=== PATIENT | female | born 1985 | race Caucasian/White ===

== ENCOUNTER → 2021-06-09 08:17 | Outpatient (CLI) | payer OTHER, SELFPAY ==
[2021-06-09 08:22] VITALS: BMI 27.4
[2021-06-09 08:30] LABS: Coronavirus 19, PCR Not Detected (NotDetected); Influenza A, PCR Not Detected (NotDetected); Influenza B, PCR Not Detected (NotDetected)
== END ==
PROVIDERS: Visit Provider Nurse Practitioner
DX: Z20.822 Contact with and (suspected) exposure to COVID-19 (principal)
CPT/HCPCS: C9803; U0003; U0005

== ENCOUNTER 2021-11-17 09:00 | Emergency (ER) | payer OTHER, SELFPAY ==
[2021-11-17 09:05] VITALS: BP 124/87; PULSE 114; RESP 18; TEMP 37.1; O2SAT 100; BMI 29.7
--- NOTE | 2021-11-17 09:25 | HMH.EDUTC ---
[facility] [place] Disposition Clinical Impression: URI (upper respiratory infection) Qualifiers: URI type: unspecified URI Qualified Code(s): J06.9 - Acute upper respiratory infection, unspecified Disposition: Home, Self-Care Condition on Discharge: Good Instructions: Sore Throat Additional Instructions: *Monitor Temp, Over the counter Motrin or Tylenol as directed/as needed Tylenol every 4 hours and Motrin every 6 hours (as long as your family doctor has told you that you can take it) for fever or pain. and straight to ER if unable to lower temp less than 101.0 after medication given *Warm salt water gargles may help to soothe the throat *Throat Lozenges *Warm fluids like tea with honey may help to soothe the throat *Sleep elevated *Humidifier/Vaporizer Your throat swab was sent for culture. Those results are typically sent to your primary care. Be sure to follow up in 2-3 days with your family doctor/primary care physician if no improvement so they can review those result and treat if necessary. If you don?t have a primary care doctor, I recommend you get one but in the mean time, you will have to return to a walk in clinic Follow up IMMEDIATELY for new or worsening symptoms or no Noticeable improvement over the next 48-72 hours. 911 for difficulty breathing or swallowing Prescriptions: methylPREDNISolone [Medrol 4mg tab] 4 mg PO DIRECTED #21 tab Transmission Status: Pending to [facility] Azithromycin [Z-Mark 250mg Tab] 250 mg PO DIRECTED #6 tab Transmission Status: Pending to [facility] Referrals: Lilly Oliveros PA [Primary Care Provider] - As needed Time of Disposition: 09:35 Medical Decision Making - Bacilio Inquiry Pt receiving controlled substance: No Bacilio was queried for this patient: No Vital Signs: 11/17/21 09:05 Temperature 98.7 F Temperature Source Oral Pulse Rate [Right Brachial] 114 H Respiratory Rate 18 Blood Pressure [Right Arm] 124/87 Blood Pressure Mean [Right Arm] 99 Blood Pressure Source [Right Arm] Automatic Cuff Blood Pressure Position [Right Arm] Sitting 02 Sat by Pulse Oximetry 100 Oxygen Delivery Method Room Air - Lab Data Lab Results 11/17/21 09:16: Group A Strep Rapid Negative Orders (Tests/Meds): ORDERS Category Date Time Status Strep Screen Confirmation Stat Micro 11/17/21 09:16 Received [facility] [place] HPI - General Stated complaint: bodyaches, SANDERS, sore throat Time Seen by Provider: 11/17/21 09:25 Mode of Arrival: Ambulatory Source of Information: Patient Limitations: No Limitations Description of Symptoms (Recalled from Triage Doc. by RN): PATIENT C/O SORE THROAT SINCE LAST NIGHT. RECENTLY EXPOSED TO STREP HEENT Symptoms (Recalled from RN notes): Yes Resp Symptoms (Recalled from RN notes): No Skin Symptoms (Recalled from RN notes): No MS Symptoms (Recalled from RN notes): No Functional Status (Recalled from RN notes): WNL - History of Present Illness Provider Complaint: Patient states that her kids was dx with strep throat yesterday and today she his having sore throat and feeling achy all over States that she is worried that she may have strep throat - Related Data Previous Rx's Medication Instructions Recorded Azithromycin [Z-Mark 250mg Tab] 250 mg PO DIRECTED #6 tab 11/17/21 methylPREDNISolone [Medrol 4mg 4 mg PO DIRECTED #21 tab 11/17/21 tab] Allergies Allergy/AdvReac Type Severity Reaction Status Date / Time Penicillins Allergy Verified 11/17/21 09:26 - Worker's Comp Is this a Worker's Comp case?: No [facility] History - Hepatitis A Screen Drug use history?: No High risk sexual behaviors?: No History of sexually transmitted infection?: No Currently employed?: No Childcare worker?: No Do you have indoor plumbing?: Yes Do you have electricity?: Yes Attestation statement:: This patient has been screened for Hepatitis A risk factors. I have reviewed the patient's past medical history: Yes - Soci
[2021-11-17 09:32] LABS: Strep Scrn Group A (Rapid) Negative (Negative)
[2021-11-17 09:33] VITALS: BP 124/87; PULSE 114; RESP 18; TEMP 37.1; O2SAT 100
== END 2021-11-17 09:38 | disposition home or self-care (01) ==
PROVIDERS: Emergency Provider Nurse Practitioner; PCP Physician Assistant
DX: J06.9 Acute upper respiratory infection, unspecified (principal); Z88.0 Allergy status to penicillin
CPT/HCPCS: 87430; 99212; G0463

== ENCOUNTER 2022-04-18 08:15 | Emergency (ER) | payer OTHER, SELFPAY ==
--- NOTE | 2022-04-18 08:19 | XR_ITS ---
FINAL REPORT CLINICAL HISTORY: injury FINDINGS: LEFT FOOT Three views of the left foot demonstrate no acute fracture or dislocation. The visualized joint spaces are normally aligned. The soft tissues are unremarkable. IMPRESSION: No acute bony abnormality. Reviewed, Interpreted and Dictated by Cleveland Connor III, MD Transcribed by Christine Levi Authenticated and [facility]
--- NOTE | 2022-04-18 08:34 | EXP.UTC ---
Discharge Plan Disposition Patient Disposition: Home, Self-Care Condition: Good Prescriptions Prescriptions: New ibuprofen [ibuprofen] 600 mg tablet 600 mg PO Q6HP PRN (Reason: Mild Pain) Qty: 30 0RF No Action azithromycin 250 MG tablet 250 mg PO DIRECTED Qty: 6 0RF Rx Instructions: Take two (2) tablets on day #1, then one (1) tablet day #2 thru #5 methylprednisolone 4 MG tablet 4 mg PO DIRECTED Qty: 21 0RF Rx Instructions: Take as directed on package instructions Referrals Follow up/Referrals: Lilly Oliveros PA [Primary Care Provider] - See instructions Activity Restrictions/Add. Instructions Additional Instructions/Restrictions: Rest the extremity, apply ice for 15 minutes as tolerated three or four times per day, Wear the kishor wrap for compression, Elevate the extremity as tolerated while you are resting. Take ibuprofen for pain. I sent in a prescription to your pharmacy. Follow up with Dr. Sanchez (podiatry). Sometimes there can be fractures that don't show up well on the first set of x-rays. I put in a referral but you need to call her office and schedule an appointment. Follow up with your regular doctor. GO TO THE ER FOR ANY WORSENING SYMPTOMS Clinical Impressions Clinical Impression: Contusion of foot, left Instructions Patient Instructions: How to Use Crutches, DI for Contusion, DI for Foot Pain Discharge ED Provider: Kyrie Bright [facility] General Stated complaint: AO [email or web address] L foot pain Time Seen by Provider: 04/18/22 08:20 History of Present Illness Provider Complaint: She bumped her left foot against the wall while getting up to check on her baby last night. she c/o left foot pain in the area of her 4th toe. She denies any other injury. Related Data Previous Rx's Medication Instructions Recorded azithromycin 250 mg tablet 250 mg PO DIRECTED #6 tabs 11/17/21 methylprednisolone 4 mg tablet 4 mg PO DIRECTED #21 tabs 11/17/21 ibuprofen 600 mg tablet 600 mg PO Q6HP PRN Mild Pain #30 04/18/22 tabs Allergies Allergy/AdvReac Type Severity Reaction Status Date / Time Penicillins Allergy Verified 04/18/22 08:58 PFSH PFS Social History Smoking Status: Never smoker alcohol intake: never current occupational status: other Travel in the last 8 weeks: None ROS Obtained: Yes All systems reviewed & no additional complaints except as documented Constitutional Constitutional: Denies chills and Denies fever(s) Musculoskeletal Musculoskeletal: Reports as per HPI Integumentary/Breasts Skin/Breast: Denies redness, Denies rash and Denies wounds Neurologic Neurologic: Denies paresthesias Physical Exam General General appearance: alert and in no apparent distress Head Head exam: atraumatic, normocephalic and normal inspection Eye Eye exam: Present normal appearance, PERRL and EOMI ENT ENT exam: Present normal exam, normal oropharynx, mucous membranes moist, TM's normal bilaterally and normal external ear exam Neck Neck exam: Present normal inspection, full ROM and trachea midline; Absent meningismus or lymphadenopathy Chest Chest inspection: Present normal inspection and symmetric chest wall rise; Absent tenderness Respiratory Respiratory exam: Present normal lung sounds bilaterally; Absent respiratory distress Cardiovascular Cardiovascular exam: Present regular rate and normal rhythm; Absent JVD Abdominal Exam Abdominal exam: Present soft and normal bowel sounds; Absent distention, tenderness or guarding Extremities Exam Extremities exam: Present normal capillary refill; Absent calf tenderness Expanded Lower Extremity Exam Left: Foot/toe exam: Present tenderness and swelling; Absent full ROM Top foot image: 1. bruising Neurovascular/Tendon exam: Present normal capillary refill and normal fine/light touch; Absent pulse deficit, motor deficit, sensory d
[2022-04-18 08:55] VITALS: BP 139/93; PULSE 90; RESP 18; TEMP 37.1; O2SAT 98; BMI 32.8
[2022-04-18 10:20] VITALS: BP 139/93; PULSE 90; RESP 18; TEMP 37.1
== END 2022-04-18 10:23 | disposition home or self-care (01) ==
PROVIDERS: Emergency Provider Nurse Practitioner Family; PCP Physician Assistant
DX: S90.32XA Contusion of left foot, initial encounter (principal); Z79.52 Long term (current) use of systemic steroids; Z79.1 Long term (current) use of non-steroidal anti-inflammatories (NSAID); Z79.899 Other long term (current) drug therapy; W22.8XXA Striking against or struck by other objects, initial encounter
CPT/HCPCS: 73630; 99213; G0463

== ENCOUNTER → 2022-08-16 08:41 | Outpatient (CLI) | payer OTHER, SELFPAY | PROVIDERS: PCP Nurse Practitioner Family; Visit Provider Nurse Practitioner Family | DX: J02.9 Acute pharyngitis, unspecified (principal) | CPT/HCPCS: 87070 ==

== ENCOUNTER 2022-08-28 11:31 | Emergency (ER) | payer OTHER, SELFPAY ==
[2022-08-28 12:15] VITALS: BP 152/102; PULSE 105; RESP 22; TEMP 36.7; O2SAT 99; BMI 33.0
--- NOTE | 2022-08-28 12:33 | EXP.UTC ---
Discharge Plan Disposition Patient Disposition: Home, Self-Care Condition: Good Prescriptions Prescriptions: New fluticasone propionate [Flonase Allergy Relief] 50 mcg/actuation spray,suspension 1 spray intranasal DAILY Qty: 16 0RF Rx Instructions: administer into each nostril Referrals Follow up/Referrals: Lilly Oliveros PA [Primary Care Provider] - See instructions Activity Restrictions/Add. Instructions Additional Instructions/Restrictions: Continue to use debrox to remove wax from ear Use flonase as prescribed FOllow up with your Family Doctor if no improvement or any worsening of symptoms Return if needed Straight to ER if any life threatening symptoms Clinical Impressions Clinical Impression: Ear pain, left Instructions Patient Instructions: DI for Ear Pain-Adult Discharge ED Provider: Jocelyn Pierre [facility] General Stated complaint: LT ear pain Mode of Arrival: Ambulatory Source of Information: Patient Limitations: No Limitations Time Seen by Provider: 08/28/22 12:33 Description of Symptoms (Recalled from Triage Doc. by RN): PATIENT C/O LEFT EAR PAIN SINCE 08/15. SHE STATES SHE WAS TREATED FOR STREP ON 08/15, BUT HER EAR IS STILL HURTING HEENT Symptoms (Recalled from RN notes): Yes Resp Symptoms (Recalled from RN notes): No Skin Symptoms (Recalled from RN notes): No MS Symptoms (Recalled from RN notes): No Functional Status (Recalled from RN notes): WNL History of Present Illness Provider Complaint: Patient states that she has been having pain in her left ear on and off since 08/15 States that she was treated for strep throat with zpack but still having pain and pressure on on off State that they told her she had some wax in there but she has been unable to get it out Related Data Previous Rx's Medication Instructions Recorded fluticasone propionate 50 1 spray intranasal DAILY #16 grams 08/28/22 mcg/actuation nasal spray,suspension (Flonase Allergy Relief) Allergies Allergy/AdvReac Type Severity Reaction Status Date / Time Penicillins Allergy Verified 08/16/22 08:25 Worker's Comp Is this a Worker's Comp case?: No [facility] Disclaimer: The information contained in this section may have been updated after the patient was seen, as this information can be updated by other users. Medical History (Updated 08/28/22 @ 12:39 by Jocelyn Pierre APRN) No significant past medical history Social History (Updated 08/28/22 @ 12:29 by Marci Mcleod RN) Smoking Status: Never smoker alcohol intake: never current occupational status: employed Travel in the last 8 weeks: None ROS Obtained: Yes All systems reviewed & no additional complaints except as documented and Yes Systems reviewed as appropriate & no additional complaints except as documented Constitutional Constitutional: Reports system reviewed and no additional complaints, except as documented and Reports as per HPI ENT Ears, Nose, Mouth, and Throat: Reports system reviewed and no additional complaints, except as documented, Reports as per HPI and Reports otalgia Cardiovascular Cardiovascular: Reports system reviewed and no additional complaints, except as documented and Reports as per HPI Respiratory Respiratory: Reports system reviewed and no additional complaints, except as documented and Reports as per HPI Physical Exam General General appearance: alert and in no apparent distress Expanded ENT Exam TM/Canal exam: Left TM: cerumen impaction (ear wax noted in canal no redness) Respiratory Respiratory exam: Present normal lung sounds bilaterally; Absent respiratory distress or wheezes Cardiovascular Cardiovascular exam: Present regular rate, normal rhythm and normal heart sounds Neurological Exam Neurological exam: Present alert, oriented X3 and normal gait Medical Decision Making Bacilio Inquiry Pt receiving controlled substance: No Bacilio was queried for this patient: No Vital Signs: 08/28/22 12
[2022-08-28 12:37] VITALS: BP 153/93; PULSE 105; RESP 22; TEMP 36.7; O2SAT 99
== END 2022-08-28 12:40 | disposition home or self-care (01) ==
PROVIDERS: Emergency Provider Nurse Practitioner; PCP Physician Assistant
DX: H92.02 Otalgia, left ear (principal)
CPT/HCPCS: 99212; G0463

== ENCOUNTER 2023-07-17 16:44 | Emergency (ER) | payer OTHER, SELFPAY ==
[2023-07-17 17:28] VITALS: BP 144/93; PULSE 99; RESP 19; TEMP 36.8; O2SAT 99; BMI 34.0
[2023-07-17 17:32] LABS: UTC Strep Screen (Rapid) Positive (Negative)
--- NOTE | 2023-07-17 17:32 | EXP.UTC ---
Discharge Plan Disposition Patient Disposition: Home, Self-Care Condition: Good Prescriptions Prescriptions: New azithromycin [Zithromax Z-Mark] 250 mg tablet See Rx Instructions .ROUTE .COMPLEX 5 Days Qty: 6 0RF Rx Instructions: For 250 mg dose pack: take 500 mg today (day 1), then 250 mg for 4 days (days 2-5) No Action fluticasone propionate [Flonase Allergy Relief] 50 mcg/actuation spray,suspension 1 spray intranasal DAILY Qty: 16 0RF Rx Instructions: administer into each nostril Referrals Follow up/Referrals: Lilly Oliveros PA [Primary Care Provider] - See instructions Activity Restrictions/Add. Instructions Additional Instructions/Restrictions: *Monitor Temp, Over the counter Motrin or Tylenol as directed/as needed Tylenol every 4 hours and Motrin every 6 hours (as long as your family doctor has told you that you can take it) for fever or pain. and straight to ER if unable to lower temp less than 101.0 after medication given *Warm salt water gargles may help to soothe the throat *Throat Lozenges? *Warm fluids like tea with honey may help to soothe the throat? *Sleep elevated *Humidifier/Vaporizer *If you did not take Penicillin shot or was unable to, start taking antibiotic immediately and make sure that you take it for the FULL length of time although you should start to feel better in 24-48 hours *change toothbrush and toothpaste 24-48 hours after starting to take antibiotics so you do not reinfect yourself Monitor Temp. Tylenol and/or Ibuprofen as needed. ER if fever is no less than 101 despite alternating Tylenol and Ibuprofen * Encourage fluids, water, Gatorade, powerade, pedialyte if infant/toddler/or child *Cold fluids, popsicles and ice cream may feel good on his throat Follow up IMMEDIATELY for new or worsening symptoms or no Noticeable improvement over the next 48-72 hours. 911 for difficulty breathing or swallowing Clinical Impressions Clinical Impression: Strep throat Instructions Patient Instructions: Strep Throat, DI for Strep Throat Discharge ED Provider: Jocelyn Pierre [facility] [place] HPI General Stated complaint: sore throat Source of Information: Patient Time Seen by Provider: 07/17/23 17:32 Description of Symptoms (Recalled from Triage Doc. by RN): Pt c/o of sore throat that started this morning and was exposed to strep HEENT Symptoms (Recalled from RN notes): Yes Resp Symptoms (Recalled from RN notes): No Skin Symptoms (Recalled from RN notes): No MS Symptoms (Recalled from RN notes): No Functional Status (Recalled from RN notes): wnl History of Present Illness Provider Complaint: Patient states that she was recently around her child that has strep throat and now she has started having sore throat this morning and has continued to get worse throughout the day so this evening she came in to get checked Related Data Previous Rx's Medication Instructions Recorded fluticasone propionate 50 1 spray intranasal DAILY #16 grams 08/28/22 mcg/actuation nasal spray,suspension (Flonase Allergy Relief) azithromycin 250 mg tablet See Rx Instructions PO .COMPLEX 5 07/17/23 (Zithromax Z-Mark) days #6 tabs Allergies Allergy/AdvReac Type Severity Reaction Status Date / Time Penicillins Allergy Verified 08/16/22 08:25 Worker's Comp Is this a Worker's Comp case?: [facility] Dis[facility]: The information contained in this section may have been updated after the patient was seen, as this information can be updated by other users. Medical History (Updated 07/17/23 @ 17:38 by Jocelyn Pierre APRN) No significant past medical history Social History (Updated 08/28/22 @ 12:29 by Marci Mcleod RN) Smoking Status: Never smoker alcohol intake: never current occupational status: employed Travel in the last 8 weeks: None ROS Obtained: Yes All systems reviewed & no additional complaints except as documented
[2023-07-17 17:40] VITALS: BP 144/93; PULSE 99; RESP 17; TEMP 37.1; O2SAT 99
== END 2023-07-17 17:55 | disposition home or self-care (01) ==
PROVIDERS: Emergency Provider Nurse Practitioner; PCP Physician Assistant
DX: J02.0 Streptococcal pharyngitis (principal); R07.0 Pain in throat
CPT/HCPCS: 87880; 99212; 99214; G0463